=== PATIENT | female | born 1965 | race Caucasian/White ===

== ENCOUNTER 2017-12-28 12:46 | Emergency (ER) | payer SELFPAY ==
--- NOTE | 2017-12-28 18:53 | RAD ---
LEFT KNEE FOUR VIEWS: 12/28/2017 FINDINGS: No fracture, dislocation, or joint effusions is seen. The joint space appears normal. The articular surfaces are smooth. IMPRESSION: No significant finding. POS: HOME
== END 2017-12-28 13:32 | disposition home or self-care (01) ==
LOC: BURERS 12:46
DX: M25.562 Pain in left knee (principal)